=== PATIENT | female | born 1970 | race Two or more races ===

== ENCOUNTER → 2016-09-18 | Outpatient (CLI) | payer MEDICAID ==
--- NOTE | ~2016-09-18 | MY29 ---
[facility] A Service of [facility] / [facility] RADIOLOGY TEXT RESULTS PATIENT: ALESSANDRA RODAS LOCATION: [facility] : 70 UNIT #: [id number] AGE: [address]: Arias Macdonald MD SEX: F ORDER DR: [id number] [facility] [address] [place], [place] [address] [id number] O MR#: [id number] #: [id number] NAME: ALESSANDRA RODAS : 1970 SEX: F STUDY DATE/TIME: 09/18/2016 11:20 UNIT: [facility] ROOM: STUDY DESCRIPTION: MY [place] SCREENING W/ CAD BILAT Attending Physician: Arias Macdonald M.D. Referring Physician: Arias Macdonald M.D. Ordering Physician: Arias Macdonald M.D. Primary Care Physician: Arias Macdonald M.D. MEDICAL IMAGING REPORT This report is preliminary unless electronic signature is present EXAM Digital screening mammogram 09/18/2016, [facility] HISTORY 45-year-old woman with prior reduction mammoplasties many years ago. Previous biopsies. New baseline mammogram. COMPARISON None. Prior mammograms in [place] unavailable. FINDINGS Digital imaging of each breast was completed utilizing screening protocol. Review includes FDA-approved CAD device. Breast parenchyma is predominantly fatty replaced. Residual opacities subareolar locations noted. There is no breast mass. There are no suspicious microcalcifications and no architectural deformity. IMPRESSION Negative baseline mammogram. Annual screen recommended. Patient's over the age of 40 are entered into a reminder system with target due date for the next mammogram. A result letter will be sent to the patient. BIRADS: 1 Negative Dictated by... Isai Moe M.D. THIS IS AN ELECTRONICALLY VERIFIED REPORT Isai Moe M.D. at 09/19/2016 8:10 AM JBB/to [facility] A Service of [facility] RADIOLOGY TEXT RESULTS PATIENT: ALESSANDRA RODAS LOCATION: [facility] #: [id number] : 70 UNIT #: [id number] AGE: [address]: Arias Macdonald MD SEX: F ORDER DR: TD: 09/18/2016 18:28 JOB #: [id number] MEDICAL IMAGING REPORT Page 1 of 1 COPY
== END | disposition home or self-care (01) ==
LOC: CWCC 10:33
DX: Z12.31 Encounter for screening mammogram for malignant neoplasm of breast (principal); Z98.890 Other specified postprocedural states
CPT/HCPCS: G0202